=== PATIENT | female | born 2000 | race Caucasian/White ===

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

== ENCOUNTER 2018-04-21 18:19 | Outpatient (CLI) | payer MEDICAID ==
[~2018-04-21] VITALS: Ht 152.4 cm; Wt 78.0 kg
[~2018-04-21 18:19] MED LIST: PREN1TAB13 PO
[2018-04-21 18:39] VITALS: Ht 152.4 cm; Wt 78.0 kg
[2018-04-21 18:40] VITALS: BP 114/56
[2018-04-21] MEDS ORDERED: LACTATED RINGER'S 1,000 ML IV ONE (22:00)
[2018-04-21] MEDS ORDERED: TERBUTALINE 1 MG/ML INJ SC ONE (22:00)
[2018-04-21] MEDS: LACTATED RINGER'S 1,000 ML IV SCH ×2 (22:55→23:57)
--- NOTE | 2018-04-22 00:27 | PN ---
Triage Information Date/Time Reason for visit: Uterine contractions Weeks of Gestation 37-week and 2 days /Para G1 Diabetes: none Hypertention: none Additional information 17-year-old 1 with single intrauterine at 37 weeks and 2 days with a SHAI of 05/21/2018 complaining of uterine contractions. She states good movement. She denies nausea, vomiting, shortness of breath, chest pain, headache, visual changes, vaginal bleeding or LOF. Objective Vital Signs Date Temp Pulse Resp B/P (MAP) Pulse Ox O2 O2 Flow FiO2 Time Delivery Rate 04/21/18 97.9 114/56 18:40 (75) Intake and Output 04/21/18 04/21/18 04/22/18 1515:00 23:00 07:00 IntakeIntake Total 1000 ml BalanceBalance 1000 ml Heart Rate: 140's Contractions: 6-10 Minutes Apart Results/Medications Medications Current Medications Lactated Ringer's 1,000 ml @ 125 mls/hr Q8H IV Last administered on 04/21/18at 23:57; Admin Dose 125 MLS/HR; Start 04/21/18 at 22:00 Acetaminophen/ Hydrocodone Bitart ([place] (5/325)) 1 tab ONCE ONCE PO Last administered on 04/22/18at 00:19; Admin Dose 1 TAB; Start 04/22/18 at 00:30; Stop 04/22/18 at 00:31 Disposition: Discharge Assessment/Plan 17-year-old 1 at 37 weeks and 2 days complaining of uterine contractions. Initially she had irregular uterine contraction which resolved after receiving 1 dose of terbutaline and IV fluid. heart rate is category 1. Currently she has no uterine contraction. Ultrasound performed with normal WILIAN and biophysical profile 8 out of 8. Sign and symptom of labor, preeclampsia, kick count discussed in detail with patient. She expressed understanding all of her questions answered. She discharged home in stable condition with follow-up in 2-3 days in the clinic. JOYCE QUIÑONES Apr 22, 2018 00:27
[2018-04-22] MEDS ORDERED: HYDROCODONE/APAP (5/325) TAB PO ONE (00:30)
--- NOTE | 2018-04-22 06:05 | TRIAGE ---
OB Triage Datetime Report Generated by CPN: 04/22/2018 06:05 Datetime: 04/22/2018 01:01 Stage of : OB Triage Monitor Mode: External Resting Tone [place]: Relaxed Contraction Comments: none Heart Rate FHR Baseline Rate: 130 Monitor Mode: External US Variability: Moderate 6-25 bpm Accelerations: 15X15 Decelerations: None Category: Category I Pain Assessment Pain Scale: 0 Pain Presence: None/Denies Pain Type: N/A Pain Relief Measures: Comfort Measures Datetime: 04/22/2018 00:20 Stage of : OB Triage Datetime: 04/22/2018 00:19 Pain Assessment Pain Scale: 4 Pain Presence: Constant Pain Type: Pressure Pain Location: Back Pain Relief Measures: Pain Medication Given; Comfort Measures Datetime: 04/22/2018 00:00 Stage of : OB Triage Labor Evaluation Frequency: Occasional Monitor Mode: External Resting Tone [place]: Relaxed Heart Rate FHR Baseline Rate: 135 Monitor Mode: External US Variability: Moderate 6-25 bpm Accelerations: 15X15 Decelerations: None Category: Category I Pain Assessment Pain Scale: 4 Pain Presence: Constant Pain Type: Pressure Pain Location: Back Pain Relief Measures: Comfort Measures Datetime: 04/21/2018 23:55 Stage of : OB Triage Pain Assessment Pain Scale: 6 Pain Presence: Constant Pain Type: Pressure Pain Location: Back Pain Relief Measures: Comfort Measures Pain Assessment Comments: Patient states that she usually has back pain but today has been stronger . Datetime: 04/21/2018 23:00 Stage of : OB Triage Labor Evaluation Frequency: Irregular Monitor Mode: External Resting Tone [place]: Relaxed Heart Rate FHR Baseline Rate: 130 Monitor Mode: External US Variability: Moderate 6-25 bpm Accelerations: 15X15 Decelerations: Variable Category: Category II Datetime: 04/21/2018 22:41 Stage of : OB Triage Datetime: 04/21/2018 22:39 Vaginal Exam Dilatation (cms): 0.5 Effacement (%): 70 Station: -2 Exam By: GKLETYMAN, RN Datetime: 04/21/2018 21:01 Stage of : OB Triage Labor Evaluation Frequency: Irregular Monitor Mode: External Resting Tone [place]: Relaxed Heart Rate FHR Baseline Rate: 130 Monitor Mode: External US Variability: Moderate 6-25 bpm Accelerations: 15X15 Decelerations: None Category: Category I Datetime: 04/21/2018 20:01 Stage of : OB Triage Labor Evaluation Frequency: Irregular Monitor Mode: External Resting Tone [place]: Relaxed Heart Rate FHR Baseline Rate: 135 Monitor Mode: External US Variability: Moderate 6-25 bpm Accelerations: 15X15 Decelerations: None Category: Category I Pain Assessment Pain Scale: 6 Pain Presence: Intermittent Pain Type: Contraction Pain Location: Abdomen; Back Pain Relief Measures: Comfort Measures Datetime: 04/21/2018 19:02 Labor Evaluation Frequency: 1-4 Monitor Mode: External Duration (sec)2399: 50-60 Pattern: Normal: <= 5 Contractions in 10 Minutes Resting Tone [place]: Relaxed Heart Rate FHR Baseline Rate: 145 Monitor Mode: External US Variability: Moderate 6-25 bpm Accelerations: 15X15 Decelerations: None Category: Category I Datetime: 04/21/2018 18:42 Vaginal Exam Dilatation (cms): 0.5 Effacement (%): 70 Station: -2 Exam By: S. lake Datetime: 04/21/2018 18:34 Stage of : OB Triage Assessment Type: Triage Maternal Assessment Level of Consciousness: Fully Conscious DTR's/Clonus: DTRs 2+; No Clonus Headache: Denies Blurred Vision: No Respiratory Effort: Unlabored; Regular Rhythm; Equal Expansion Breath Sounds, Left: Clear and Equal Breath Sounds, Right: Clear and Equal Nausea/Vomiting: Denies RUQ Epigastric Pain: Denies Lower Extremities Edema: None Degree: None Upper Extremities Edema: None Facial Edema: None Fall Risk Assessment History of Falling: (0) No Secondary Diagnosis: (0) No Ambulatory Aid: (0) Bedrest/Nurse Assist IV Therapy: (0) No Gait: (0) Normal/Bedrest/Immobile Mental Status: (0) Oriented to Own Ability Fall Score: 0 Fall Risk Score Definition: No Risk: No action required Monitor Mode: External (Annotations: INITIAL PLACEMENT ) Monitor Mode: External US (Annotations: INTIAL PLACEMENT ) Pain Assessment Pain Scale: 6 Pain Presence: Intermittent Pain Type: Cramping Pain Location: Abdomen Datetime: 04/21/2018 18:33 Time of Arrival: 04/21/2018 18:15 EGA: 35.5 Arrived By: Ambulatory Arrived From: Home Chief Complaint: DISCHARGE AND UC'S Movement: Present Time Contractions Began: 04/21/2018 15:00 Rupture of Membranes: Denies Vaginal Bleeding: Small Vaginal Discharge: Present Recent Sexual Intercouse: Denies Abdominal Trauma: Not Applicable Patient Complaints: Contractions Time Provider Notified: 04/21/2018 19:50 Provider Notified: Hadadian Initial Plan: EFMX2, CALL MD Datetime: 03/23/2018 00:05 Fall Score: 0 Fall Risk Score Definition: No Risk: No action required Datetime: 03/23/2018 00:03 EGA: 31.3
== END 2018-04-22 01:20 | disposition home or self-care (01) ==
LOC: OBT 18:19 → L-D 18:23 → OBT 04-22 01:20
PROVIDERS: ATTEND Obstetrics & Gynecology
DX: O62.9 Abnormality of forces of labor, unspecified (principal); Z3A.37 37 weeks gestation of pregnancy
CPT/HCPCS: 76815; 96360; 96361; 96372; J3105; J7120; Z7500; Z7610; G0463

== ENCOUNTER 2018-05-02 17:07 | Outpatient (CLI) | payer MEDICAID ==
[~2018-05-02] VITALS: Ht 152.4 cm; Wt 79.4 kg
[2018-05-02 17:40] VITALS: Ht 152.4 cm; Wt 79.4 kg
[2018-05-02 17:41] VITALS: BP 112/55; PULSE 88; RESP 18
--- NOTE | 2018-05-02 21:11 | PN ---
Triage Information Date/Time Reason for visit: Uterine contractions Weeks of Gestation 36 weeks /Para Diabetes: none Hypertention: none Objective Vital Signs Date Temp Pulse Resp B/P (MAP) Pulse Ox O2 O2 Flow FiO2 Time Delivery Rate 05/02/18 98.3 88 18 112/55 17:41 (74) Heart Rate: 120's Heart Rate Comments Reactive Exam Cervix closed Results/Medications Imaging Results BPP 11/16 Disposition: Discharge Assessment/Plan No cervical change MANISHA RÍOS MD May 02, 2018 21:10
--- NOTE | 2018-05-03 00:07 | TRIAGE ---
OB Triage Datetime Report Generated by CPN: 05/03/2018 00:07 Datetime: 05/03/2018 21:10 Stage of : OB Triage Labor Evaluation Frequency: IRREG Monitor Mode: External Duration (sec)2399: 50-60 Quality: Mild Pattern: Normal: <= 5 Contractions in 10 Minutes Resting Tone [place]: Relaxed Heart Rate FHR Baseline Rate: 140 Monitor Mode: External US Variability: Moderate 6-25 bpm Accelerations: 15X15 Decelerations: None Category: Category I Pain Assessment Pain Scale: 8 Pain Presence: Intermittent Pain Type: Cramping Pain Location: Back Pain Goal: 3 Pain Relief Measures: Comfort Measures Datetime: 05/03/2018 20:10 Stage of : OB Triage Labor Evaluation Frequency: IRREG Monitor Mode: External Duration (sec)2399: 50-60 Quality: Mild Pattern: Normal: <= 5 Contractions in 10 Minutes Resting Tone [place]: Relaxed Heart Rate FHR Baseline Rate: 140 Monitor Mode: External US Variability: Moderate 6-25 bpm Accelerations: 15X15 Decelerations: Variable Category: Category II Pain Assessment Pain Scale: 8 Pain Presence: Intermittent Pain Type: Cramping Pain Location: Back Pain Goal: 3 Pain Relief Measures: Comfort Measures Datetime: 05/03/2018 19:10 Stage of : OB Triage Labor Evaluation Frequency: 0 Monitor Mode: External Pattern: Normal: <= 5 Contractions in 10 Minutes Resting Tone [place]: Relaxed Heart Rate FHR Baseline Rate: 135 Monitor Mode: External US Variability: Moderate 6-25 bpm Accelerations: 15X15 Decelerations: None Pain Assessment Pain Scale: 8 Pain Presence: Intermittent Pain Type: Cramping Pain Location: Back Pain Goal: 3 Pain Relief Measures: Comfort Measures Datetime: 05/02/2018 20:16 Monitor Mode: External Monitor Mode: External US Datetime: 05/02/2018 19:49 Monitor Mode: External Monitor Mode: External US Datetime: 05/02/2018 19:44 Headache: Temporal; Bilateral Pain Assessment Pain Scale: 8 Pain Presence: Intermittent Pain Type: Contraction Pain Location: Abdomen; Back Pain Assessment Comments: LOWER ABDOMEN Datetime: 05/02/2018 19:43 Vaginal Exam Dilatation (cms): 1.5 Effacement (%): 50 Station: -3 Exam By: azy k RN Membrane Status: Intact Cervix, Consistency: Moderate Cervix, Position: Posterior Datetime: 05/02/2018 18:26 Labor Evaluation Frequency: 0 Monitor Mode: External Pattern: Normal: <= 5 Contractions in 10 Minutes Resting Tone [place]: Relaxed Heart Rate FHR Baseline Rate: 135 Monitor Mode: External US Variability: Moderate 6-25 bpm Accelerations: 10X10 Decelerations: None Category: Category I Pain Assessment Pain Scale: 6 Pain Presence: Intermittent Pain Type: Cramping Pain Location: Back Pain Goal: 3 Pain Relief Measures: Comfort Measures Datetime: 05/02/2018 18:19 Stage of : OB Triage Datetime: 05/02/2018 17:23 Stage of : OB Triage Assessment Type: Triage Maternal Assessment Level of Consciousness: Fully Conscious DTR's/Clonus: DTRs 2+; No Clonus Headache: Denies Blurred Vision: No Respiratory Effort: Unlabored; Regular Rhythm; Equal Expansion Breath Sounds, Left: Clear and Equal Breath Sounds, Right: Clear and Equal Nausea/Vomiting: Denies RUQ Epigastric Pain: Denies Facial Edema: None Temperature Route: Axillary Fall Risk Assessment History of Falling: (0) No Secondary Diagnosis: (0) No Ambulatory Aid: (0) Bedrest/Nurse Assist IV Therapy: (0) No Gait: (0) Normal/Bedrest/Immobile Mental Status: (0) Oriented to Own Ability Fall Score: 0 Fall Risk Score Definition: No Risk: No action required Labor Evaluation Frequency: APPLIED Monitor Mode: External Heart Rate FHR Baseline Rate: 150 Monitor Mode: External US Variability: Moderate 6-25 bpm Accelerations: 10X10 Decelerations: None Category: Category I Pain Assessment Pain Scale: 8 Pain Presence: Intermittent Pain Type: Cramping; Contraction Pain Location: Abdomen; Back Pain Goal: 3 Pain Relief Measures: Comfort Measures Vaginal Exam Dilatation (cms): 2.0 Effacement (%): 50 Station: -2 Exam By: IN CLINIC Datetime: 05/02/2018 17:21 Time of Arrival: 05/02/2018 17:00 EGA: 36.3 Arrived By: Ambulatory Arrived From: Office Chief Complaint: REFERRED FROM DRAllyson OFFICE FOR EXTENDED MONITORING, DENIES BLEEDING OR LEAKING OF FL UID,C/O UC'S Q 10 MIN Movement: Present Contractions: Irregular Contractions: 8-10 Rupture of Membranes: Denies Vaginal Bleeding: None Vaginal Discharge: Denies Recent Sexual Intercouse: Denies Abdominal Trauma: Not Applicable Patient Complaints: Contractions; Cramping Initial Plan: EXTENDED MONITORING, BPP REPEAT VE IN 2 HOURS Datetime: 04/21/2018 18:34 Fall Score: 0 Fall Risk Score Definition: No Risk: No action required Datetime: 04/21/2018 18:33 EGA: 34.6 Datetime: 03/23/2018 00:05 Fall Score: 0 Fall Risk Score Definition: No Risk: No action required Datetime: 03/23/2018 00:03 EGA: 30.4
== END 2018-05-02 21:15 | disposition home or self-care (01) ==
LOC: OBT 17:07 → L-D 17:08 → OBT 21:15
PROVIDERS: ATTEND Obstetrics & Gynecology
DX: O62.9 Abnormality of forces of labor, unspecified (principal); Z3A.36 36 weeks gestation of pregnancy
CPT/HCPCS: 76818; Z7500; G0463

== ENCOUNTER 2018-05-08 22:22 | Inpatient (IN) | payer MEDICAID ==
[~2018-05-08] VITALS: Ht 152.4 cm; Wt 81.7 kg
[2018-05-08 22:29] VITALS: BP 120/56; PULSE 82; RESP 18
[2018-05-08] MEDS ORDERED: FOL8 PO (22:41)
[2018-05-08] MEDS ORDERED: FER325 PO (22:41)
[2018-05-08] MEDS ORDERED: LACTATED RINGER'S 1,000 ML IV SCH ×2 (23:44)
[2018-05-09] MEDS ORDERED: CARBOPROST 250 MCG INJ IM PRN
[2018-05-09] MEDS ORDERED: OXYTOCIN 30 UNITS/LR 500 ML IV SCH ×3
[2018-05-09] MEDS ORDERED: METHYLERGONOVINE 0.2 MG INJ IM PRN
[2018-05-09] MEDS ORDERED: LIDOCAINE 1% (MPF) 30 ML INJ INJ PRN
[2018-05-09] MEDS ORDERED: BUTORPHANOL 2 MG INJ IV PRN
[2018-05-09] MEDS ORDERED: IBUPROFEN 600 MG TAB PO PRN
[2018-05-09] MEDS ORDERED: OXYTOCIN 30 UNITS/LR 500 ML IV PRN
[2018-05-09] MEDS ORDERED: MISOPROSTOL 200 MCG TAB PR PRN
--- NOTE | 2018-05-09 01:58 | TRIAGE ---
OB Triage Datetime Report Generated by CPN: 05/09/2018 01:57 Datetime: 05/09/2018 01:30 Labor Evaluation Frequency: irreg Monitor Mode: External Quality: Mild Pattern: Normal: <= 5 Contractions in 10 Minutes Resting Tone [place]: Relaxed Heart Rate FHR Baseline Rate: 150 Monitor Mode: External US Variability: Moderate 6-25 bpm Accelerations: 15X15 Decelerations: None Category: Category I Datetime: 05/09/2018 00:29 Monitor Mode: External Pattern: Normal: <= 5 Contractions in 10 Minutes Resting Tone [place]: Relaxed Heart Rate FHR Baseline Rate: 140 Monitor Mode: External US Variability: Moderate 6-25 bpm Accelerations: 15X15 Decelerations: None Category: Category I Datetime: 05/09/2018 00:10 Assessment Type: Admission Assessment Vaginal Bleeding: None Maternal Assessment Level of Consciousness: Fully Conscious DTR's/Clonus: DTRs 2+; No Clonus Headache: Denies Blurred Vision: No Respiratory Effort: Unlabored; Regular Rhythm; Equal Expansion Breath Sounds, Left: Clear and Equal Breath Sounds, Right: Clear and Equal Nausea/Vomiting: Denies RUQ Epigastric Pain: Denies Facial Edema: None Fall Risk Assessment History of Falling: (0) No Secondary Diagnosis: (0) No Ambulatory Aid: (0) Bedrest/Nurse Assist IV Therapy: (20) Yes Gait: (0) Normal/Bedrest/Immobile Mental Status: (0) Oriented to Own Ability Fall Score: 20 Fall Risk Score Definition: No Risk: No action required Pain Assessment Pain Scale: 6 Pain Presence: Intermittent Pain Type: Cramping Pain Location: Abdomen; Back Pain Goal: 0 Datetime: 05/09/2018 00:01 Stage of : Labor Temperature Route: Oral Datetime: 05/08/2018 23:58 Monitor Mode: External Contraction Comments: reapplied Monitor Mode: External US Comments: reapplied Datetime: 05/08/2018 23:32 Labor Evaluation Frequency: irregular Monitor Mode: External Duration (sec)2399: 60-70 Quality: Mild Pattern: Normal: <= 5 Contractions in 10 Minutes Resting Tone [place]: Relaxed Heart Rate FHR Baseline Rate: 150 Monitor Mode: External US Variability: Moderate 6-25 bpm Accelerations: 15X15 Decelerations: None Category: Category I Datetime: 05/08/2018 23:29 Vaginal Exam Dilatation (cms): 1.0 Effacement (%): 50 Station: -3 Datetime: 05/08/2018 22:34 Nitrazine: Negative Datetime: 05/08/2018 22:29 Stage of : OB Triage Maternal Assessment Level of Consciousness: Fully Conscious DTR's/Clonus: DTRs 2+; No Clonus Headache: Denies Breath Sounds, Left: Clear and Equal Breath Sounds, Right: Clear and Equal Nausea/Vomiting: Denies RUQ Epigastric Pain: Denies Temperature Route: Oral Pain Assessment Pain Scale: 6 Pain Presence: Intermittent Pain Type: Contraction Pain Location: Back Pain Goal: 2 Pain Relief Measures: Comfort Measures Datetime: 05/08/2018 22:21 Time of Arrival: 05/08/2018 22:15 EGA: 37.2 Arrived By: Ambulatory Arrived From: Home Chief Complaint: DFM FOR 5-6 HOURS NOW AND LEAKING OF FLUIDS Movement: Absent Contractions: Irregular Time Contractions Began: 05/08/2018 09:00 Contractions: 10-15 minutes apart-per pt Rupture of Membranes: Unsure Vaginal Bleeding: None Vaginal Discharge: Denies Recent Sexual Intercouse: Denies Abdominal Trauma: Not Applicable Patient Complaints: Contractions Time Provider Notified: 05/08/2018 23:39 Provider Notified: CAMILA Initial Plan: CEFM, SVE. NITRAZINE, ROM+ Datetime: 05/02/2018 21:10 Stage of : OB Triage Labor Evaluation Frequency: IRREG Monitor Mode: External Duration (sec)2399: 50-60 Quality: Mild Pattern: Normal: <= 5 Contractions in 10 Minutes Resting Tone [place]: Relaxed Heart Rate FHR Baseline Rate: 140 Monitor Mode: External US Variability: Moderate 6-25 bpm Accelerations: 15X15 Decelerations: None Category: Category I Pain Assessment Pain Scale: 8 Pain Presence: Intermittent Pain Type: Cramping Pain Location: Back Pain Goal: 3 Pain Relief Measures: Comfort Measures Datetime: 05/02/2018 20:10 Stage of : OB Triage Labor Evaluation Frequency: IRREG Monitor Mode: External Duration (sec)2399: 50-60 Quality: Mild Pattern: Normal: <= 5 Contractions in 10 Minutes Resting Tone [place]: Relaxed Heart Rate FHR Baseline Rate: 140 Monitor Mode: External US Variability: Moderate 6-25 bpm Accelerations: 15X15 Decelerations: Variable Category: Category II Pain Assessment Pain Scale: 8 Pain Presence: Intermittent Pain Type: Cramping Pain Location: Back Pain Goal: 3 Pain Relief Measures: Comfort Measures Datetime: 05/02/2018 19:10 Stage of : OB Triage Labor Evaluation Frequency: 0 Monitor Mode: External Pattern: Normal: <= 5 Contractions in 10 Minutes Resting Tone [place]: Relaxed Heart Rate FHR Baseline Rate: 135 Monitor Mode: External US Variability: Moderate 6-25 bpm Accelerations: 15X15 Decelerations: None Category: Category I Pain Assessment Pain Scale: 8 Pain Presence: Intermittent Pain Type: Cramping Pain Location: Back Pain Goal: 3 Pain Relief Measures: Comfort Measures Datetime: 05/02/2018 17:23 Fall Score: 0 Fall Risk Score Definition: No Risk: No action required Datetime: 05/02/2018 17:21 EGA: 36.3 Datetime: 04/21/2018 18:34 Fall Score: 0 Fall Risk Score Definition: No Risk: No action required Datetime: 04/21/2018 18:33 EGA: 34.6 Datetime: 03/23/2018 00:05 Fall Score: 0 Fall Risk Score Definition: No Risk: No action required Datetime: 03/23/2018 00:03 EGA: 30.4
--- NOTE | 2018-05-09 21:40 | HP ---
Date/Time of Note Date/Time of Note DATE: 05/09/18 TIME: 21:32 OB - History Hx of Present Free Text/Dictation 17 years old with single intrauterine at 37 weeks admitted last night for painful uterine contractions. She states good movement. She denies nausea, vomiting, shortness of breath, chest pain, headache, visual changes, vaginal bleeding or LOF. Chief Complaint: Uterine contractions : 2 Para: 0 Spontaneous : 1 Therapeutic : 0 Care: Good Care Ultrasounds: Normal mid trimester US Obstetrical Complications: None Medical Complications: None Past Family/Social History * Past Medical, Surgical, Family and Obstetric Histories reviewed from chart. Blood Type: O+ Rubella: immune RPR/VDRL: Negative GBS Status: Negative HBsAG: Negative OB Admission Exam Vital Signs Vital Signs Vital Signs Date Temp Pulse Resp B/P (MAP) Pulse Ox O2 O2 Flow FiO2 Time Delivery Rate 05/08/18 99.4 82 18 120/56 Room Air 22:29 (77) Physical Exam HEENT: WNL Heart: Rhythm Normal Lungs: Clear Abdomen: WNL Extremities: Normal Cervical Dilatation: 2cm Effacement: 50% Station: -3 Membranes: Intact Heart Rate: 140's Accelerations: Accelerations Present Decelerations: No Decelerations Varibility: Moderate Contractions on Admission: 6-10 Minutes Apart Intensity: Mild Last 72 hours Lab Results CBC & BMP 05/09/18 00:10 OB Assessment/Plan Other plan: 17 years old 2 para 0010 with single intrauterine at 37 weeks was admitted for painful uterine contractions last night and possible leakage of fluid.. heart rate is category 1. Ultrasound performed last night, WILIAN of 7.7 and biophysical profile 8 out of 8.nitrazine and ROM plus was negative she was admitted for close monitoring. - FHR: No sign of metabolic acidosis- Category I - Continuous EFM, toco - CBC, blood type and screen - Please see the orders - O+/Rubella: Immune - GBS: negative JOYCE QUIÑONES May 09, 2018 21:40
--- NOTE | 2018-05-09 21:42 | DS ---
Date/Time of Note Date/Time of Note DATE: 05/09/18 TIME: 21:40 Obstetrical Discharge Record Final Diagnosis Final Diagnosis: Term not delivered Other Final Diagnosis 17 years old 2 para 0010 with single intrauterine at 37 weeks was admitted for painful uterine contractions last night and possible leakage of fluid. heart rate is category 1. Ultrasound performed last night, WILIAN of 7.7 and biophysical profile 8 out of 8. Nitrazine and ROM plus were negative she was admitted for close monitoring. Currently she has irregular uterine contractions. She is comfortable with contractions. Vaginal exam 1 weeks ago was 2/50/-3/cephalic/intact membrane, repeat exam today was the same. Repeat ultrasound today with WILIAN of 7.3. Sign and symptom of labor, preeclampsia, kick count discussed in detail with patient and her family. All expressed understanding. All of their questions answered. As currently she is very comfortable with uterine contraction, there is no rupture of membrane and no cervical changes compared to last week she discharged home in stable condition with follow-up with NST and repeat WILIAN in 3 days. Condition on Discharge Physical Assessment Voiding: Yes Bowel Movement: Yes Calf Tenderness: No Patient Condition: Stable JOYCE QUIÑONES May 09, 2018 21:42
== END 2018-05-09 21:36 | disposition home or self-care (01) | DRG 833 ==
LOC: OBT 22:22 → L-D 22:23 → OBT 23:39 → L-D 23:39
PROVIDERS: ADMIT Obstetrics & Gynecology; ATTEND Obstetrics & Gynecology
DX: O60.03 Preterm labor without delivery, third trimester (principal); Z3A.37 37 weeks gestation of pregnancy
CPT/HCPCS: 76818; 81001; 84112; 85025; 85610; 85730; 86592; 86850; 86900; 86901; G0463; J7120

== ENCOUNTER 2018-12-19 20:56 | Emergency (ER) | payer SELFPAY ==
[~2018-12-19] VITALS: Ht 154.9 cm; Wt 100.0 kg
[~2018-12-19 20:56] MED LIST changes: +BACI28.34 TOP; +BACITUD TOP; +CEPH-443 PO; +IBUP-1542 PO
[2018-12-19 20:57] VITALS: Ht 154.9 cm; Wt 100.0 kg
[2018-12-19] MEDS ORDERED: IBUPROFEN 800 MG TAB PO ONE (22:30)
[2018-12-19] MEDS ORDERED: LIDOCAINE 2%/EPI (MDV) 20ML INJ INJ ONE (22:30)
[2018-12-19] MEDS ORDERED: LIDOCAINE 2%/EPI MPF (SDV) 20 ML VIAL INJ ONE (23:00)
[2018-12-20 01:12] VITALS: BP 116/78; PULSE 69; RESP 20
== END 2018-12-20 01:13 | disposition home or self-care (01) ==
LOC: FTE 20:56
DX: S51.812A Laceration without foreign body of left forearm, initial encounter (principal); W25.XXXA Contact with sharp glass, initial encounter; Y92.9 Unspecified place or not applicable
CPT/HCPCS: 73090

== ENCOUNTER 2018-12-22 12:56 | Emergency (ER) | payer SELFPAY ==
[~2018-12-22] VITALS: Ht 152.4 cm; Wt 78.0 kg
[2018-12-22 13:04] VITALS: BP 130/78; PULSE 80; RESP 18; Ht 152.4 cm; Wt 78.0 kg
== END 2018-12-22 13:52 | disposition home or self-care (01) ==
LOC: E/R 12:56
DX: Z48.01 Encounter for change or removal of surgical wound dressing (principal)
CPT/HCPCS: 99281

== ENCOUNTER 2018-12-27 09:56 | Emergency (ER) | payer SELFPAY ==
[~2018-12-27] VITALS: Wt 78.0 kg
[2018-12-27 10:00] VITALS: BP 124/59; PULSE 64; RESP 18
[2018-12-27] MEDS ORDERED: BACITRACIN/POLYMYXIN 28.35 GM OINT TOP ONE (11:30)
== END 2018-12-27 12:39 | disposition home or self-care (01) ==
LOC: FTE 09:56
DX: T81.33XA Disruption of traumatic injury wound repair, initial encounter (principal); Y82.9 Unspecified medical devices associated with adverse incidents
CPT/HCPCS: 99283